=== PATIENT | male | born 1995 | race African-American/Black ===

== ENCOUNTER 2017-05-30 19:06 | Emergency (ER) | payer SELFPAY ==
[~2017-05-30] VITALS: Ht 170.2 cm; Wt 63.5 kg
== END 2017-05-30 21:08 | disposition home or self-care (01) ==
LOC: SED 19:06
DX: T78.1XXA Other adverse food reactions, not elsewhere classified, initial encounter (principal); Z91.013 Allergy to seafood
CPT/HCPCS: 96374; 96375; 99283; J1200; J2930